=== PATIENT | female | born 2000 | race Caucasian/White ===

== ENCOUNTER 2019-02-26 16:25 | Emergency (ER) | payer SELFPAY ==
[~2019-02-26] VITALS: Ht 160 cm; Wt 60.0 kg
[2019-02-26 16:26] VITALS: BP 137/87
[2019-02-26] MEDS ORDERED: DEXT 5% / LACT RING 1,000 ML IV ONE (17:00)
--- NOTE | 2019-02-26 17:05 | NUR ---
BIB BOYFRIEND. AAO X4 C/O VAGINAL SPOTTING X TODAY. PT STATES LMP: 12/2018 AMANDA: 09/22/2019, 1ST . PT IS ANXIOUS AND LEFT LOWER LIP SWOLLEN FROM PT BITING LIP. DENIES N/V/D; SKIN IS PINK/WARM/DRY; AAOX4 WITH EVEN AND STEADY GAIT; PATIENT STATES PAIN OF 0/10 AT THIS TIME; VSS; PATIENT POSITIONED FOR COMFORT; HOB ELEVATED; BEDRAILS UP X1; BED DOWN. ER MD MADE AWARE OF PT STATUS.
[2019-02-26 17:29] LABS: APPEARANCE,URINE CLOUDY (CLEAR); BILIRUBIN,URINE NEGATIVE (NEGATIVE); BLOOD, URINE NEGATIVE (NEGATIVE); COLOR,URINE YELLOW (YELLOW); LEUKOCYTE ESTERASE ,URINE NEGATIVE (NEGATIVE); NITRITE, URINE POSITIVE (NEGATIVE); UGLUCOSE NEGATIVE (NEGATIVE)
--- NOTE | 2019-02-26 17:42 | NUR ---
ULTRASOUND AT BEDSIDE
[2019-02-26 17:44] LABS: BASOPHILS % (AUTO) 0.4 % (0.0-2.0); EOSINOPHILS % (AUTO) 0.1 % (0.0-4.0); HEMOGLOBIN 11.1 g/dL (12.0-16.0); LYMPHOCYTES # (AUTO) 1.8 K/uL (2.5-16.5); LYMPHOCYTES % (AUTO) 20.7 % (20.5-51.1); MEAN CORPUSCULAR HEMOGLOBIN 24 pg (27-31); MEAN CORPUSCULAR HGB CONC 32 g/dL (33-37); MEAN CORPUSCULAR VOLUME 74.8 fL (80-94); MONOCYTES # (AUTO) 0.3 K/uL (0.8-1.0); MONOCYTES % (AUTO) 3.7 % (1.7-9.3); NEUTROPHILS # (AUTO) 6.4 K/uL (1.8-7.7); NEUTROPHILS % (AUTO) 75.1 % (42.2-75.2); PLATELET COUNT (AUTO) 356 K/uL (140-450); RED BLOOD CELL COUNT(AUTO) 4.68 MIL/uL (4.20-5.40); RED CELL DISTRIBUTION WIDTH 18.5 % (11.6-13.7); WHITE BLOOD COUNT (AUTO) 8.5 K/uL (4.5-11.0)
[2019-02-26 17:47] LABS: BARBITURATE, URINE NEG. ng/ml (NEG <=200); BENZODIAZEPINE, URINE NEG. ng/mL (NEG <=200); CANNABINOID, URINE NEG. ng/mL (NEG <=50); COCAINE, URINE NEG. ng/mL (NEG <=300); OPIATE, URINE NEG. ng/mL (NEG <=2000); PHENCYCLIDINE SCREEN,URINE NEG. ng/mL (NEG <=25)
[2019-02-26 17:49] LABS: RBC,URINE 0-5 /HPF (0-5)
[2019-02-26 17:50] LABS: WBC,URINE 0-5 /HPF (0-5)
--- NOTE | 2019-02-26 17:50 | NUR ---
PT C/O PAIN TO IV INSERT SITE---NO REDNESS, NO INDURATION PALPATED---FLOWING TO GRAVITY W/O---REMOVED TEGADERM / TAPE PULLED BACK ON STYE , PT ADMITS TO RELIEF OF PAIN---IVF CONTINUE TO FLOW VIA GRAVITY NO INDURATION, NO REDNESS---ENCOURAGED PT TO INFORM STAFF IF PAIN CONTINUES
--- NOTE | 2019-02-26 19:18 | NUR ---
REPORT GIVEN TO THU RODAS. CARE TRANSFERED AT THIS TIME.
--- NOTE | 2019-02-26 19:28 | NUR ---
Patient discharged with v/s stable. Written and verbal after care instructions given and explained. Patient alert, oriented and verbalized understanding of instructions. Ambulatory with steady gait. All questions addressed prior to discharge. ID band removed. Patient advised to follow up with PMD. Rx of VITAMINS given. Patient educated on indication of medication including possible reaction and side effects. Opportunity to ask questions provided and answered.
[2019-02-26 19:29] VITALS: BP 114/56
--- NOTE | 2019-03-01 08:58 | NUR ---
PT CALLED, NO ANSWER, LEFT VOICEMAIL TO RETURN CALL.
== END 2019-02-26 19:28 | disposition home or self-care (01) ==
LOC: MED 16:25
DX: O26.851 Spotting complicating pregnancy, first trimester (principal); Z3A.09 9 weeks gestation of pregnancy
CPT/HCPCS: 36415; 76801; 80305; 81001; 81025; 84702; 85025; 86900; 86901; 87086; 87186; 99284; Q0092; 96360; 96361; J7120